=== PATIENT | male | born 1985 | race Caucasian/White ===

== ENCOUNTER 2018-02-13 11:46 | Emergency (ER) | END 2018-02-13 15:00 | disposition home or self-care (01) ==

== ENCOUNTER 2018-09-13 13:26 | Emergency (ER) | payer OTHER ==
[~2018-09-13] VITALS: Wt 90.0 kg
[~2018-09-13 13:26] MED LIST: AZIT250T PO; IBUP-1542 PO; PSEU120T12 PO
[2018-09-13 14:16] VITALS: BP 146/96; PULSE 92; RESP 20; Wt 90.0 kg
[2018-09-13] MEDS ORDERED: SOD CHLORIDE 0.9% 500 ML IV STA (15:36)
[2018-09-13] MEDS ORDERED: ONDANSETRON 4 MG INJ IV STA (15:36)
--- NOTE | 2018-09-13 17:22 | ERD ---
ER Documentation Chief Complaint Chief Complaint DIZZINESS X2 DAYS; AMBULATED WITH STEADY GAIT, DENIES PMH HPI 32-year-old male patient with a past medical history of hyperlipidemia, hypert ension presents to ED complaining of dizziness that started 2 days ago. She reports that he feels like the room is spinning around him. Denies any head or neck injuries. Denies any chest pain, shortness of breath, nausea, diarrhea, neck stiffness, diarrhea, abdominal pain. ROS All systems reviewed and are negative except as per history of present illness. Medications Home Meds Active Scripts Pseudoephedrine Hcl (Sudafed 12 Hour) 120 Mg Tablet.sa, 120 MG PO QD-BID for CONGESTION, #20 Prov:DUNCAN BRADY MD 03/12/15 Ibuprofen* (Motrin*) 600 Mg Tab, 600 MG PO Q6, #20 TAB Prov:DUNCAN BRADY MD 03/12/15 Azithromycin* (Zithromax*) 250 Mg Tablet, 250 MG PO .ZPACK DIRECTED, #6 TAB TAKE 500 MG (2 TABS) THE FIRST DAY THEN 250 MG (1 TAB) DAYS 2-5 Prov:DUNCAN BRADY MD 03/12/15 Allergies Allergies: Coded Allergies: No Known Allergy (Unverified , 02/13/18) PMhx/Soc Medical and Surgical Hx: pt denies Surgical Hx History of Surgery: No Anesthesia Reaction: No Hx Neurological Disorder: No Hx Respiratory Disorders: No Hx Cardiac Disorders: Yes (hyperlipidemia) Hx Psychiatric Problems: No Hx Miscellaneous Medical Probl: No Hx Alcohol Use: No Hx Substance Use: No Hx Tobacco Use: No Smoking Status: Never smoker FmHx Family History: No diabetes, No coronary disease Physical Exam Vitals Vital Signs Date Temp Pulse Resp B/P (MAP) Pulse Ox O2 O2 Flow FiO2 Time Delivery Rate 09/13/18 98.8 92 20 146/96 96 14:16 (113) Physical Exam Const: Muo-pjq-rpftlaeou, well-nourished. In no acute distress. Head: Atraumatic, normocephalic Eyes: Normal Conjunctiva without injection. No purulent discharge. PERRLA. EOMI ENT: Normal external ear. Ear canal without erythema. Tympanic membrane pearly pineda without effusion or bulging. Nasal canal clear with normal turbinates. Moist oropharynx without tonsillar exudates. Non-erythematous pharynx. Uvula midline. No drooling. No trismus. Neck: No cervical midline tenderness. Full range of motion. No meningismus. No cervical lymphadenopathy. No JVD. Resp: Clear to auscultation bilaterally. No wheezing, rhonchi, rales, or crackles. No accessory muscle use. No retractions. Cardio: Regular rate and rhythm. No murmurs, rubs or gallops. Abd: Soft, non tender, non distended. Normal bowel sounds. No palpable masses. No rebound tenderness. No guarding. Negative McBurney's Point. Negative Buckley's Sign. Skin: Normal skin turgor. No petechiae or rashes Back: No midline tenderness. No CVA tenderness. Ext: No cyanosis, or edema. Distal pulses intact bilaterally. Neur: Awake and alert. Normal gait. Normal coordination. Cranial Nerves II- VII intact. Normal finger to nose. Muscle strength 5/5. Sensation intact. Psych: Normal Mood and Affect Results 24 hrs Laboratory Tests Test 09/13/18 15:47 White Blood Count 5.0 10^3/ul Red Blood Count 5.87 10^6/ul Hemoglobin 16.4 g/dl Hematocrit 47.0 % Mean Corpuscular Volume 80.1 fl Mean Corpuscular Hemoglobin 27.9 pg Mean Corpuscular Hemoglobin Concent 34.9 g/dl Red Cell Distribution Width 12.4 % Platelet Count 244 10^3/UL Mean Platelet Volume 10.6 fl Immature Granulocytes % 0.200 % Neutrophils % 46.7 % Lymphocytes % 43.1 % Monocytes % 6.8 % Eosinophils % 2.6 % Basophils % 0.6 % Nucleated Red Blood Cells % 0.0 /100WBC Immature Granulocytes # 0.010 10^3/ul Neutrophils # 2.3 10^3/ul Lymphocytes # 2.2 10^3/ul Monocytes # 0.3 10^3/ul Eosinophils # 0.1 10^3/ul Basophils # 0.0 10^3/ul Nucleated Red Blood Cells # 0.0 10^3/ul Sodium Level 140 mmol/L Potassium Level 4.0 mmol/L Chloride Level 103 mmol/L Carbon Dioxide Level 24 mmol/L Anion Gap 13 Blood Urea Nitrogen 13 mg/dl Creatinine 0.83 mg/dl Est Glomerular Filtrat Rate mL/min > 60 mL/min Glucose Level 123 mg/dl Calcium Level 9.3 mg/dl Troponin I < 0.012 ng/ml Current Medications Medications Dose Sig/Reji Start Time Status Last (Trade) Ordered Route PRN Stop Time Admin Dose Reason Admin Sodium 500 ml @ Q1H STAT 09/13/18 DC 09/13/18 Chloride 500 mls/hr IV 15:36 15:54 09/13/18 16:35 Ondansetron 4 mg ONCE STAT 09/13/18 DC 09/13/18 HCl (Zofran IV 15:36 15:54 Inj) 09/13/18 15:39 Procedures/MDM 32-year-old male patient with a past medical history of hyperlipidemia and hypertension. Presents to ED complaining of dizziness that started 2 days ago. Patient is afebrile and nontoxic-appearing. CBC: No leukocytosis or anemia CMP: No e/o alkalosis, acidosis, renal or liver disease EKG reviewed and interpreted by Dr. Reeder Rate/Rhythm: [80 bpm, Normal Sinus Rhythm] No ectopy, no ST elevations, normal axis. QRS, ST, T-waves: [No changes consistent w/ acute ischemia] Impression: [No evidence of ischemia or arrhythmia] Patient received 500 mL of normal saline here in the ED and feels better. Low suspicion for dehydration, acute myocardial infarction, pneumothorax, pneumonia, cardiac tamponade, Aulhy-Lpdluljlx-Zuimv Syndrome, Brugada Syndrome, pulmonary embolism, AAA, aortic dissection, thoracic aortic dissection, endocarditis, myocarditis, pericarditis, cocaine-related ischemia, Boerhaave's syndrome, cardiac dysrhythmias,meningitis, intracranial bleed, seizure, stroke, TIA or other emergent conditions. Diagnosis: Dizziness Follow up with primary care physician in 1-2 days for a referral to see a neurologist. Instructed patient to return to the ED sooner for any worsening sym ptoms. Patient's questions were answered. Patient is hemodynamically stable. Patient understood and agreed with discharge plan. Patient discharged stable. Disclaimer: Inadvertent spelling and grammatical errors are likely due to EHR/dictation software use and do not reflect on the overall quality of patient care. Also, please note that the electronic time recorded on this note does not necessarily reflect the actual time of the patient encounter. Departure Diagnosis: Primary Impression: Dizziness Condition: Stable Patient Instructions: Possible Causes of Dizziness or Fainting, Dizziness, Unk Cause Referrals: [facility] JESSICA [facility]PCP) [facility] YOU HAVE RECEIVED A MEDICAL SCREENING EXAM AND THE RESULTS INDICATE THAT YOU DO NOT HAVE A CONDITION THAT REQUIRES URGENT TREATMENT IN THE EMERGENCY DEPARTMENT. FURTHER EVALUATION AND TREATMENT OF YOUR CONDITION CAN WAIT UNTIL YOU ARE SEEN IN YOUR DOCTORS OFFICE WITHIN THE NEXT 1-2 DAYS. IT IS YOUR RESPONSIBILITY TO MAKE AN APPOINTMENT FOR FOLOW-UP CARE. IF YOU HAVE A PRIMARY DOCTOR --you should call your primary doctor and schedule an appointment IF YOU DO NOT HAVE A PRIMARY DOCTOR YOU CAN CALL OUR PHYSICIAN REFERRAL HOTLINE AT IF YOU CAN NOT AFFORD TO SEE A PHYSICIAN YOU CAN CHOSE FROM THE FOLLOWING [facility] [address] [facility]. [facility] [address] [facility] [facility] [address] [facility] [address] [facility] [address] [facility]. [facility] [address] [facility]. [facility] YOU HAVE RECEIVED A MEDICAL SCREENING EXAM AND THE RESULTS INDICATE THAT YOU DO NOT HAVE A CONDITION THAT REQUIRES URGENT TREATMENT IN THE EMERGENCY DEPARTMENT. FURTHER EVALUATION AND TREATMENT OF YOUR CONDITION CAN WAIT UNTIL YOU ARE SEEN IN YOUR DOCTORS OFFICE WITHIN THE NEXT 1-2 DAYS. IT IS YOUR RESPONSIBILITY TO MAKE AN APPOINTMENT FOR FOLOW-UP CARE. IF YOU HAVE A PRIMARY DOCTOR --you should call your primary doctor and schedule and appointment IF YOU DO NOT HAVE A PRIMARY DOCTOR YOU CAN CALL OUR PHYSICIAN REFERRAL HOTLINE AT . IF YOU CAN NOT AFFORD TO SEE A PHYSICIAN YOU CAN CHOSE FROM THE FOLLOWING [facility]: [facility] [address] [place] [address] [facility] [address] [place] [address] [facility] [address] [place] [address] [facility] URGENT CARE/SPECIALTIES Additional Instructions: Llame al doctor MAKI y johnathon eddie SINCERE PARA DENTRO DE 2-3 PERRIN repetir el e lectrocardiograma si los sntomas persisten.Dgale a la secretaria que nosotros le instruimos hacer esta sincere.Avise o llame si donahue condicin se empeora antes de la sincere. Regresa aqui si peor o no mejor. CARLOS A REYNAGA PA-C Sep 13, 2018 17:22
== END 2018-09-13 17:30 | disposition home or self-care (01) ==
LOC: FTE 13:26
DX: R42 Dizziness and giddiness (principal); I10 Essential (primary) hypertension
CPT/HCPCS: 36415; 80048; 84484; 85025; 93005; 96374; J2405; J7040; Z7502